=== PATIENT | female | born 1955 | race Hispanic/Latino ===

== ENCOUNTER 2023-06-26 10:19 | Inpatient (IN) | payer MEDICARE ==
[2023-06-26] MEDS ORDERED: Ondansetron ODT 4 MG TAB PO PRN (13:18)
[2023-06-26 13:51] VITALS: BMI 33.6
[2023-06-26] MEDS: Heparin 5,000 UNITS/ML VIAL SC SCH (15:03)
[2023-06-26] MEDS: Sodium Chloride 0.9% 1,000 ML IV SCH (15:03)
[2023-06-26] MEDS: Acetaminophen 325 MG TAB PO PRN (15:44)
[2023-06-26] MEDS: FLU VACC QS2023(65UP)/MF59C/PF 60 MCG/0.5 ML SYRINGE IM ONE (15:46)
[2023-06-26] MEDS: diphenhydrAMINE 25 MG CAP PO PRN (21:27)
[2023-06-26] MEDS: Famotidine 20 MG TAB PO SCH (21:27)
[2023-06-26] MEDS: Docusate 100 MG CAP PO SCH (21:27)
[2023-06-26] MEDS: Calcium Carbonate 500 MG ChewTAB PO PRN (21:28)
[2023-06-27 05:36] LABS: #Eosinphils 0.1 10x3/uL (0.0-0.5); #Monocytes 0.8 10x3/uL (0.0-1.1); #Neutrophils 3.7 10x3/uL (1.5-8.4); %Basophils 0.5 % (0.0-2.0); %Eosinophils 0.9 % (0.0-6.0); %Lymphocytes 28.6 % (18.0-47.0); %Monocytes 12.4 % (0.0-10.0); %Neutrophils 57.4 % (40.0-75.0); Hematocrit 27.4 % (34.9-44.5); Hemoglobin 8.8 g/dL (12.0-15.5); Mean Corpuscular HGB CONC 32.1 g/dL (32.0-36.0); Mean Corpuscular Hemoglobin 28.3 pg (27.0-33.0); Mean Corpuscular Volume 88.1 fl (81.6-98.3); Mean Platelet Volume 9.2 fl (7.4-10.4); Platelet Count 264 10x3/uL (150-450); RBC Distribution Width 13.7 % (11.5-14.5); Red Blood Cell (RBC) Count 3.11 10x6/uL (3.90-5.03); White Blood Cell (WBC) Count 6.5 10x3/uL (3.5-10.5)
[2023-06-27 05:51] LABS: ALT (SGPT) 16 U/L (8-55); AST (SGOT) 27 U/L (5-34); Albumin 3.4 g/dL (3.4-4.8); Alkaline Phosphatase 53 U/L (40-110); Anion Gap 12 mmol/L (10-20); BUN (Urea Nitrogen) 32 mg/dL (9.8-20.1); Bilirubin, Total 0.5 mg/dL (0.2-1.2); Calc. Creatinine Clearance 13 mL/min (70-130); Calcium 8.2 mg/dL (7.8-10.44); Carbon Dioxide 19 mmol/L (23-31); Chloride 104 mmol/L (98-107); Estimated GFR 8; Glucose 93 mg/dL (80-115); Potassium 3.8 mmol/L (3.5-5.1); Protein, Total 5.4 g/dL (5.8-8.1); Sodium 131 mmol/L (136-145)
[2023-06-27] MEDS: Levothyroxine Sodium 100 MCG TAB PO SCH (06:47)
[2023-06-27] MEDS: Senokot S 8.6-50 MG TAB PO PRN (06:47)
[2023-06-27] MEDS: Atorvastatin Calcium 40 MG TAB PO SCH (09:28)
[2023-06-27] MEDS: cefTRIAXone\\ROCEPHIN 1 GM in Sodium Chloride 0.9% 100 ML IVPB SCH (09:29)
[2023-06-27 11:37] LABS: Creatinine, Urine 41.54 mg/dL (47-110)
[2023-06-27] MEDS ORDERED: Bisacodyl 10 MG SUPP PR PRN (13:02)
[2023-06-27] MEDS ORDERED: Polyethylene Glycol 3350 17 GM Packet PO PRN (13:02)
[2023-06-27] MEDS: Polyethylene Glycol 3350 17 GM Packet PO SCH (16:18)
[2023-06-27] MEDS: Famotidine 20 MG TAB PO SCH (21:50)
[2023-06-27] MEDS: traZODone HCl 50 MG TAB PO PRN (22:12)
[2023-06-27] MEDS: Amlodipine 10 MG TAB PO SCH (22:24)
[2023-06-28 05:42] LABS: #Eosinphils 0.1 10x3/uL (0.0-0.5); #Neutrophils 4.8 10x3/uL (1.5-8.4); %Basophils 0.4 % (0.0-2.0); %Eosinophils 1.6 % (0.0-6.0); %Lymphocytes 20.8 % (18.0-47.0); %Monocytes 12.6 % (0.0-10.0); %Neutrophils 64.3 % (40.0-75.0); Hematocrit 27.7 % (34.9-44.5); Mean Corpuscular HGB CONC 32.5 g/dL (32.0-36.0); Mean Corpuscular Hemoglobin 28.6 pg (27.0-33.0); Mean Corpuscular Volume 87.9 fl (81.6-98.3); Mean Platelet Volume 9.5 fl (7.4-10.4); Platelet Count 284 10x3/uL (150-450); RBC Distribution Width 13.8 % (11.5-14.5); Red Blood Cell (RBC) Count 3.15 10x6/uL (3.90-5.03); White Blood Cell (WBC) Count 7.5 10x3/uL (3.5-10.5)
[2023-06-28 06:05] LABS: Anion Gap 12 mmol/L (10-20); BUN (Urea Nitrogen) 28 mg/dL (9.8-20.1); Calc. Creatinine Clearance 17 mL/min (70-130); Calcium 8.5 mg/dL (7.8-10.44); Carbon Dioxide 19 mmol/L (23-31); Chloride 109 mmol/L (98-107); Estimated GFR 11; Glucose 97 mg/dL (80-115); Sodium 136 mmol/L (136-145)
[2023-06-28] MEDS: FLUoxetine HCl 20 MG CAP PO SCH (10:12)
[2023-06-28] MEDS: lamoTRIgine 100 MG TAB PO SCH (10:13)
[2023-06-28] MEDS: busPIRone HCl 15 MG TAB PO SCH (10:13)
[2023-06-28] MEDS: Polyethylene Glycol 3350 17 GM Packet PO SCH (10:21)
[2023-06-28] MEDS ORDERED: Enoxaparin 40 MG (0.4 mL) SYRINGE SC SCH (13:00)
[2023-06-28] MEDS: Enoxaparin 40 MG (0.4 mL) SYRINGE SC SCH (17:59)
[2023-06-28] MEDS: Amlodipine 10 MG TAB PO SCH (20:55)
[2023-06-29 04:56] LABS: #Eosinphils 0.1 10x3/uL (0.0-0.5); #Monocytes 0.9 10x3/uL (0.0-1.1); #Neutrophils 5.7 10x3/uL (1.5-8.4); %Basophils 0.4 % (0.0-2.0); %Eosinophils 1.2 % (0.0-6.0); %Lymphocytes 17.5 % (18.0-47.0); %Monocytes 10.8 % (0.0-10.0); %Neutrophils 69.7 % (40.0-75.0); Hemoglobin 8.8 g/dL (12.0-15.5); Mean Corpuscular HGB CONC 33.8 g/dL (32.0-36.0); Mean Corpuscular Hemoglobin 29.3 pg (27.0-33.0); Mean Corpuscular Volume 86.7 fl (81.6-98.3); Mean Platelet Volume 9.7 fl (7.4-10.4); Platelet Count 275 10x3/uL (150-450); RBC Distribution Width 13.9 % (11.5-14.5); White Blood Cell (WBC) Count 8.2 10x3/uL (3.5-10.5)
[2023-06-29 04:59] LABS: Anion Gap 13 mmol/L (10-20); BUN (Urea Nitrogen) 20 mg/dL (9.8-20.1); Calc. Creatinine Clearance 24 mL/min (70-130); Calcium 8.3 mg/dL (7.8-10.44); Carbon Dioxide 18 mmol/L (23-31); Chloride 110 mmol/L (98-107); Estimated GFR 16; Glucose 97 mg/dL (80-115); Potassium 3.6 mmol/L (3.5-5.1); Sodium 137 mmol/L (136-145)
[2023-06-29] MEDS: Enoxaparin 30 MG (0.3 mL) SYRINGE SC SCH (10:22)
[2023-06-30 04:27] LABS: #Eosinphils 0.2 10x3/uL (0.0-0.5); #Monocytes 1.1 10x3/uL (0.0-1.1); #Neutrophils 5.9 10x3/uL (1.5-8.4); %Basophils 0.4 % (0.0-2.0); %Eosinophils 2.6 % (0.0-6.0); %Lymphocytes 17.7 % (18.0-47.0); %Monocytes 12.8 % (0.0-10.0); %Neutrophils 66.3 % (40.0-75.0); Hematocrit 24.4 % (34.9-44.5); Hemoglobin 8.2 g/dL (12.0-15.5); Mean Corpuscular HGB CONC 33.6 g/dL (32.0-36.0); Mean Corpuscular Hemoglobin 29.1 pg (27.0-33.0); Mean Corpuscular Volume 86.5 fl (81.6-98.3); Mean Platelet Volume 9.4 fl (7.4-10.4); Platelet Count 259 10x3/uL (150-450); RBC Distribution Width 13.8 % (11.5-14.5); Red Blood Cell (RBC) Count 2.82 10x6/uL (3.90-5.03); White Blood Cell (WBC) Count 8.9 10x3/uL (3.5-10.5)
[2023-06-30 04:32] LABS: Anion Gap 11 mmol/L (10-20); BUN (Urea Nitrogen) 13 mg/dL (9.8-20.1); Calc. Creatinine Clearance 36 mL/min (70-130); Carbon Dioxide 19 mmol/L (23-31); Chloride 110 mmol/L (98-107); Estimated GFR 26; Glucose 91 mg/dL (80-115); Potassium 3.4 mmol/L (3.5-5.1); Sodium 137 mmol/L (136-145)
[2023-06-30 14:22] LABS: ANA Symphony (Qualitative) POSITIVE (Negative); CENP IgG Antibody 0.7 EliAU/mL (<7 Negative); Jo-1 IgG Antibody Less than 0.3 EliAU/mL (<7 Negative); SSA/Ro IgG Antibody Greater than 240.0 EliAU/mL (<7 Negative); SSB/La IgG Antibody Less than 0.4 EliAU/mL (<7 Negative); Scleroderma-70 IgG Antibody 3.6 EliAU/mL (<7 Negative); dsDNA IgG Antibody 0.9 IU/mL (<10 Negative)
[2023-06-30 14:39] LABS: Kappa Lambda Light Chain Ratio 0.92 (0.26-1.65); Kappa Light Chains 17.6 mg/L (3.3-19.4); Lambda Light Chain 19.2 mg/L (5.7-26.3)
[2023-06-30 15:15] LABS: Albumin-Ur 62.1 % (.); Alpha 1 - Ur 6.8 % (.); Beta-Ur 10.6 % (.); Gamma-Ur 9.5 % (.); M-Spike,% Not Observed % (Not Observed); Protein, Urine 16.5 mg/dL (Not Estab.)
[2023-06-30 15:20] LABS: Troponin I Less than 0.010 ng/mL (< 0.028)
[2023-06-30] MEDS: Nitroglycerin 2% Ointment 1 INCH/1 GM Packet TOP SCH (21:58)
[2023-06-30] MEDS: Nitroglycerin 2% Ointment 1 INCH/1 GM Packet ONE (22:02)
[2023-06-30] MEDS: Furosemide 40 MG (4 mL) VIAL ONE (22:02)
[2023-06-30] MEDS: Furosemide 100 MG (10 mL) VIAL SLOW IVP SCH ×2 (22:03→22:10)
[2023-07-01 03:46] LABS: Anion Gap 15 mmol/L (10-20); BUN (Urea Nitrogen) 12 mg/dL (9.8-20.1); Calc. Creatinine Clearance 43 mL/min (70-130); Calcium 8.6 mg/dL (7.8-10.44); Carbon Dioxide 21 mmol/L (23-31); Chloride 108 mmol/L (98-107); Estimated GFR 33; Glucose 96 mg/dL (80-115); Potassium 3.7 mmol/L (3.5-5.1); Sodium 140 mmol/L (136-145)
[2023-07-01 04:26] LABS: #Basophils 0.1 10x3/uL (0.0-0.2); #Eosinphils 0.3 10x3/uL (0.0-0.5); #Monocytes 1.2 10x3/uL (0.0-1.1); #Neutrophils 5.3 10x3/uL (1.5-8.4); %Basophils 0.6 % (0.0-2.0); %Eosinophils 3.4 % (0.0-6.0); %Lymphocytes 20.6 % (18.0-47.0); %Monocytes 13.8 % (0.0-10.0); %Neutrophils 61.4 % (40.0-75.0); Mean Corpuscular HGB CONC 33.3 g/dL (32.0-36.0); Mean Corpuscular Hemoglobin 29.2 pg (27.0-33.0); Mean Corpuscular Volume 87.7 fl (81.6-98.3); Mean Platelet Volume 9.6 fl (7.4-10.4); Platelet Count 306 10x3/uL (150-450); RBC Distribution Width 14.2 % (11.5-14.5); Red Blood Cell (RBC) Count 3.08 10x6/uL (3.90-5.03); White Blood Cell (WBC) Count 8.6 10x3/uL (3.5-10.5)
[2023-07-01 12:18] VITALS: BP 132/75; TEMP 98.2
[2023-07-01 16:39] LABS: A/G Ratio 1.2 (0.7-1.7); Alpha 1 0.3 g/dL (0.0-0.4); Alpha 2 0.6 g/dL (0.4-1.0); Beta 0.8 g/dL (0.7-1.3); Gamma 0.7 g/dL (0.4-1.8); Globulin, Total 2.5 g/dL (2.2-3.9); M-Spike Not Observed g/dL (Not Observed)
== END 2023-07-01 14:05 | disposition home or self-care (01) | DRG 682 ==
LOC: CSHTELE 12:57
PROVIDERS: ADMIT Internal Medicine; ATTEND Hospitalist
DX: N17.9 Acute kidney failure, unspecified (principal); J81.0 Acute pulmonary edema; E87.1 Hypo-osmolality and hyponatremia; N39.0 Urinary tract infection, site not specified; E87.20 Acidosis, unspecified; E78.5 Hyperlipidemia, unspecified; F41.9 Anxiety disorder, unspecified; F31.9 Bipolar disorder, unspecified; I12.9 Hypertensive chronic kidney disease with stage 1 through stage 4 chronic kidney disease, or unspecified chronic kidney disease; K59.09 Other constipation; E03.9 Hypothyroidism, unspecified; N18.30 Chronic kidney disease, stage 3 unspecified; K59.00 Constipation, unspecified; E87.6 Hypokalemia; D63.8 Anemia in other chronic diseases classified elsewhere; E66.9 Obesity, unspecified; Z68.33 Body mass index [BMI] 33.0-33.9, adult
CPT/HCPCS: 36415; 36416; 71045; 76770; 80048; 80053; 82306; 82570; 83880; 83883; 83970; 84155; 84156; 84165; 84166; 84484; 85025; 86038; 86225; 86235; 93005; 93010; J0696; J1644; J1650; J1940; J3490; J7050